=== PATIENT | female | born 1990 | race Hispanic/Latino ===

== ENCOUNTER 2017-12-20 11:55 | Observation (INO) | payer BC, MEDICAID ==
[~2017-12-20] VITALS: Ht 167.6 cm; Wt 80.3 kg
[2017-12-20 12:37] LABS: APPEARANCE,URINE Cloudy (CLEAR); BILIRUBIN,URINE Negative (NEGATIVE); COLOR,URINE Yellow (YELLOW); GLUCOSE, URINE (UA) Negative (NEGATIVE); KETONES,URINE Negative (NEGATIVE); LEUKOCYTE ESTERASE ,URINE Small (NEGATIVE); NITRATE,URINE Negative (NEGATIVE); OCCULT BLOOD,URINE Negative (NEGATIVE); PH,URINE 6.5 (5.0-8.0); PROTEIN,URINE Trace (NEGATIVE)
[2017-12-20 13:10] LABS: BACTERIA,URINE Few /HPF (None Seen); MUCUS,URINE Few LPF (None Seen); SQUAMOUS EPITHELIAL CELL,UR Moderate /HPF (0-2)
== END 2017-12-20 15:00 | disposition home or self-care (01) ==
LOC: LDH 11:55
PROVIDERS: ADMIT Obstetrics & Gynecology; ATTEND Obstetrics & Gynecology
DX: O26.872 Cervical shortening, second trimester (principal); Z3A.16 16 weeks gestation of pregnancy
CPT/HCPCS: 76805; 76810; 81001; G0378 ×4

== ENCOUNTER 2018-03-28 14:26 | Inpatient (IN) | payer BC ==
[~2018-03-28] VITALS: Ht 170.2 cm; Wt 89.8 kg
[2018-03-28 15:27] LABS: APPEARANCE,URINE Clear (CLEAR); BILIRUBIN,URINE Negative (NEGATIVE); COLOR,URINE Yellow (YELLOW); GLUCOSE, URINE (UA) Negative (NEGATIVE); KETONES,URINE Trace mg/dL (NEGATIVE); LEUKOCYTE ESTERASE ,URINE Negative (NEGATIVE); NITRATE,URINE Negative (NEGATIVE); OCCULT BLOOD,URINE Negative (NEGATIVE); PH,URINE 6.5 (5.0-8.0); PROTEIN,URINE Negative (NEGATIVE); UROBILINOGEN,URINE 0.2 mg/dL (0.2-1.0)
[2018-03-28] MEDS ORDERED: LACTATED RINGERS 1000ML 1,000 ML IV SCH (16:45)
[2018-03-28] MEDS ORDERED: MAGNESIUM 4GM PREMIX 100ML 100 ML IV SCH (17:45)
[2018-03-28] MEDS ORDERED: CALCIUM GLUCONATE 1 GM/10 ML VIAL IV PRN (17:45)
[2018-03-28] MEDS ORDERED: MAGNESIUM SULFATE 1,000 ML IV PRN (17:45)
[2018-03-28] MEDS: AMPICILLIN 2GM+NS 100ML 100 ML IV SCH (18:53)
[2018-03-28] MEDS: DEXAMETHASONE SOD PHOSPHATE 4 MG/ML 1ML VIAL IM SCH (19:30)
[2018-03-28 21:08] LABS: HEMATOCRIT 29.4 % (36-48); MEAN CORPUSCULAR HEMOGLOBIN 32.5 pg (27.0-33.0); MEAN CORPUSCULAR HGB CONC 34.8 g/dL (32.0-36.0); MEAN CORPUSCULAR VOLUME 93.3 fL (79-99); PLATELET COUNT (AUTO) 217 K/uL (130-400); RED BLOOD CELL COUNT(AUTO) 3.15 MIL/uL (4.00-5.50); RED CELL DISTRIBUTION WIDTH 12.7 % (11.0-15.5); WHITE BLOOD COUNT (AUTO) 10.7 K/uL (4.8-10.8)
[2018-03-28 21:08] LABS: AMPHET/METH SCREEN,URINE NEGATIVE (NEGATIVE); BARBITURATE SCREEN, URINE NEGATIVE (NEGATIVE); BENZODIAZEPINES SCREEN,URINE NEGATIVE (NEGATIVE); CANNABINOID SCREEN,URINE NEGATIVE (NEGATIVE); COCAINE SCREEN,URINE NEGATIVE (NEGATIVE); OPIATE SCREEN,URINE NEGATIVE (NEGATIVE); PHENCYCLIDINE SCREEN,URINE NEGATIVE (NEGATIVE)
[2018-03-29] MEDS: AMPICILLIN 2GM+NS 100ML 100 ML IV SCH ×3 (01:12→13:30)
[2018-03-29] MEDS: DEXAMETHASONE SOD PHOSPHATE 4 MG/ML 1ML VIAL IM SCH ×3 (01:12→13:30)
[2018-03-30 07:35] LABS: HEPATITIS Bs ANTIGEN SCREEN P Negative (Negative)
== END 2018-03-30 10:15 | disposition home or self-care (01) | DRG 781 ==
LOC: OBSVTOIN 14:26 → LDH 14:26 → WSH 03-29 19:17
PROVIDERS: ADMIT Obstetrics & Gynecology; ATTEND Obstetrics & Gynecology
DX: O26.893 Other specified pregnancy related conditions, third trimester (principal); O30.003 Twin pregnancy, unspecified number of placenta and unspecified number of amniotic sacs, third trimester; R10.9 Unspecified abdominal pain; Z3A.29 29 weeks gestation of pregnancy
CPT/HCPCS: 36415; 76810; 80305; 81003; 85027; 86592; 86850; 86900; 86901; 87340; A4314; J0290; J1100; J3475; J7120

== ENCOUNTER 2018-04-17 10:22 | Observation (INO) | payer BC | END 2018-04-17 11:40 | disposition home or self-care (01) | LOC: EDH 10:22 → LDH 10:38 | PROVIDERS: ADMIT Obstetrics & Gynecology; ATTEND Obstetrics & Gynecology | DX: O62.9 Abnormality of forces of labor, unspecified (principal); Z3A.32 32 weeks gestation of pregnancy | CPT/HCPCS: 99285; G0378 ==